=== PATIENT | female | born 1945 | race Two or more races ===

== ENCOUNTER 2017-06-03 14:19 | Outpatient (CLI) | payer OTHER | END 2017-06-03 14:24 | disposition home or self-care (01) | LOC: RAD 14:19 | DX: M25.562 Pain in left knee (principal) ==

== ENCOUNTER 2017-11-07 15:18 | Outpatient (CLI) | payer OTHER | END 2017-11-07 15:23 | disposition home or self-care (01) | LOC: RAD 501 15:18 | DX: M25.561 Pain in right knee (principal) ==

== ENCOUNTER 2018-03-28 11:40 | Outpatient (CLI) | payer OTHER | END 2018-03-28 17:08 | disposition home or self-care (01) | LOC: MRI 11:40 | DX: M25.561 Pain in right knee (principal); M15.0 Primary generalized (osteo)arthritis; M25.461 Effusion, right knee | CPT/HCPCS: 73721 ==

== ENCOUNTER 2018-06-20 07:43 | Outpatient (CLI) | payer OTHER | END 2018-06-20 15:00 | disposition home or self-care (01) | LOC: LAB 07:43 | DX: Z01.812 Encounter for preprocedural laboratory examination (principal) ==

== ENCOUNTER → 2018-06-20 | Outpatient (CLI) | payer OTHER | END | disposition home or self-care (01) | LOC: EKG 07:46 | DX: Z01.818 Encounter for other preprocedural examination (principal); Z01.810 Encounter for preprocedural cardiovascular examination ==

== ENCOUNTER 2018-08-05 09:23 | Outpatient (CLI) | payer OTHER ==
[2018-08-08] MEDS ORDERED: METFORMIN HCL500 MG PO (07:53)
[2018-08-08] MEDS ORDERED: MAVIK PO (07:54)
[2018-08-08] MEDS ORDERED: FISH OIL-VIT D1 EACH PO (07:54)
[2018-08-08] MEDS ORDERED: VIT D PO (07:55)
== END 2018-08-05 09:41 | disposition home or self-care (01) ==
LOC: LAB 09:23
DX: Z01.812 Encounter for preprocedural laboratory examination (principal)

== ENCOUNTER → 2018-08-13 | Day surgery (SDC) | payer OTHER ==
[~2018-08-13] MED LIST: FISH OIL-VIT D1 EACH PO; MAVIK PO; METFORMIN HCL500 MG PO; VIT D PO
== END | disposition home or self-care (01) ==
LOC: ADM 08-08 07:30 → CIR.AMB 05:38
DX: M65.842 Other synovitis and tenosynovitis, left hand (principal)

== ENCOUNTER 2018-09-04 14:05 | Outpatient (CLI) | payer OTHER | END 2018-09-04 14:34 | disposition home or self-care (01) | LOC: RAD 14:05 | DX: M17.0 Bilateral primary osteoarthritis of knee (principal) ==

== ENCOUNTER 2020-06-10 08:35 | Outpatient (CLI) | payer OTHER | END 2020-06-10 08:44 | disposition home or self-care (01) | LOC: RAD 08:35 | PROVIDERS: ATTEND Internal Medicine | DX: M25.542 Pain in joints of left hand (principal); M54.2 Cervicalgia ==

== ENCOUNTER 2020-06-22 06:45 | Day surgery (SDC) | payer OTHER | END 2020-06-22 12:00 | disposition home or self-care (01) | LOC: AMB-ENDOS 06:45 | PROVIDERS: ATTEND Surgery | DX: K62.89 Other specified diseases of anus and rectum (principal); K64.1 Second degree hemorrhoids; Z20.828 Contact with and (suspected) exposure to other viral communicable diseases; Z12.11 Encounter for screening for malignant neoplasm of colon ==

== ENCOUNTER 2020-07-06 12:45 | Outpatient (CLI) | payer OTHER | END 2020-07-06 12:55 | disposition home or self-care (01) | LOC: NUCLEAR 12:45 | PROVIDERS: ATTEND Orthopaedic Surgery | DX: M81.0 Age-related osteoporosis without current pathological fracture (principal) ==

== ENCOUNTER 2021-01-24 08:00 | Outpatient (CLI) | payer OTHER | END 2021-01-24 08:30 | disposition home or self-care (01) | LOC: PPH VACUNA 08:00 | DX: Z23 Encounter for immunization (principal) ==

== ENCOUNTER 2021-02-02 13:50 | Outpatient (CLI) | payer OTHER | END 2021-02-02 13:56 | disposition home or self-care (01) | LOC: RAD 13:50 | PROVIDERS: ATTEND Internal Medicine | DX: M25.551 Pain in right hip (principal); M15.8 Other polyosteoarthritis ==

== ENCOUNTER 2021-02-14 14:45 | Outpatient (CLI) | payer OTHER | END 2021-02-14 15:00 | disposition home or self-care (01) | LOC: PPH VACUNA 14:45 | PROVIDERS: ATTEND Emergency Medicine Pediatric Emergency Medicine | DX: Z23 Encounter for immunization (principal) ==

== ENCOUNTER 2021-06-30 14:17 | Outpatient (CLI) | payer OTHER | END 2021-06-30 14:22 | disposition home or self-care (01) | LOC: LAB 14:17 | PROVIDERS: ATTEND Orthopaedic Surgery | DX: E55.9 Vitamin D deficiency, unspecified (principal); M85.9 Disorder of bone density and structure, unspecified; E56.1 Deficiency of vitamin K ==

== ENCOUNTER 2021-08-16 13:24 | Outpatient (CLI) | payer OTHER | END 2021-08-16 13:35 | disposition home or self-care (01) | LOC: RAD 13:24 | PROVIDERS: ATTEND Internal Medicine | DX: M25.571 Pain in right ankle and joints of right foot (principal); M25.522 Pain in left elbow ==

== ENCOUNTER 2021-08-21 11:30 | Outpatient (CLI) | payer OTHER | END 2021-08-21 11:37 | disposition home or self-care (01) | LOC: NUCLEAR 11:30 | PROVIDERS: ATTEND Internal Medicine | DX: M81.0 Age-related osteoporosis without current pathological fracture (principal) ==

== ENCOUNTER 2022-01-04 13:25 | Outpatient (CLI) | payer OTHER | END 2022-01-04 13:35 | disposition home or self-care (01) | LOC: RAD 13:25 | PROVIDERS: ATTEND Internal Medicine | DX: M79.641 Pain in right hand (principal); M25.531 Pain in right wrist ==

== ENCOUNTER 2022-11-19 13:46 | Outpatient (CLI) | payer OTHER | END 2022-11-19 13:50 | disposition home or self-care (01) | LOC: RAD 13:46 | PROVIDERS: ATTEND Orthopaedic Surgery | DX: M25.572 Pain in left ankle and joints of left foot (principal); M79.672 Pain in left foot; M25.531 Pain in right wrist; M25.532 Pain in left wrist ==

== ENCOUNTER → 2022-11-19 15:30 | Outpatient (CLI) | payer OTHER | END | disposition home or self-care (01) | LOC: LAB 15:30 | PROVIDERS: ATTEND Radiology Diagnostic Radiology | DX: M25.532 Pain in left wrist (principal) ==

== ENCOUNTER 2023-07-29 13:34 | Outpatient (CLI) | payer OTHER | END 2023-07-29 13:39 | disposition home or self-care (01) | LOC: RAD 13:34 | PROVIDERS: ATTEND Orthopaedic Surgery | DX: M79.641 Pain in right hand (principal); M79.644 Pain in right finger(s) ==

== ENCOUNTER 2023-08-15 10:29 | Outpatient (CLI) | payer OTHER | END 2023-08-15 10:36 | disposition home or self-care (01) | LOC: SONOGRAMA 10:29 | PROVIDERS: ATTEND Internal Medicine | DX: N18.31 Chronic kidney disease, stage 3a (principal) ==

== ENCOUNTER 2024-02-13 07:39 | Outpatient (CLI) | payer OTHER | END 2024-02-13 07:43 | disposition home or self-care (01) | LOC: RAD 07:39 | PROVIDERS: ATTEND Internal Medicine | DX: M25.512 Pain in left shoulder (principal) ==

== ENCOUNTER 2024-06-22 14:12 | Outpatient (CLI) | payer OTHER | END 2024-06-22 14:18 | disposition home or self-care (01) | LOC: RAD 14:12 | PROVIDERS: ATTEND Internal Medicine | DX: M25.541 Pain in joints of right hand (principal); M25.542 Pain in joints of left hand ==

== ENCOUNTER 2024-09-01 13:23 | Outpatient (CLI) | payer OTHER | END 2024-09-01 13:25 | disposition home or self-care (01) | LOC: NUCLEAR 13:23 | PROVIDERS: ATTEND Orthopaedic Surgery | DX: M81.0 Age-related osteoporosis without current pathological fracture (principal) ==

== ENCOUNTER 2025-02-08 07:56 | Outpatient (CLI) | payer OTHER | END 2025-02-08 07:57 | disposition home or self-care (01) | LOC: NUCLEAR 07:56 | PROVIDERS: ATTEND Internal Medicine | DX: I73.9 Peripheral vascular disease, unspecified (principal) ==